=== PATIENT | male | born 1985 | race Caucasian/White ===

== ENCOUNTER 2016-09-11 15:38 | Emergency (ER) | payer MEDICAID ==
[~2016-09-11] VITALS: Ht 180.3 cm; Wt 73.5 kg
[2016-09-11 16:54] VITALS: BP 123/81
== END 2016-09-11 16:54 | disposition left against medical advice (07) ==
LOC: ED 15:38
DX: R55 Syncope and collapse (principal); F11.90 Opioid use, unspecified, uncomplicated